=== PATIENT | female | born 1990 | race Hispanic/Latino ===

== ENCOUNTER 2020-05-09 19:51 | Emergency (ER) | payer OTHER ==
[2020-05-09] MEDS ORDERED: Ondansetron ODT 4 MG TAB ONE (20:23)
[2020-05-09 20:41] LABS: Bilirubin Negative (Negative); Blood, Urine Negative (Negative); Clarity Clear (Clear); Glucose, Urine (Dipstick) Normal (Negative); Leukocyte Negative Leu/uL (Negative); Nitrite Negative (Negative); Pregnancy Test - Urine (BHCG) Negative (Negative); Pregu Control Background? CLEAR/WHITE (CLR/WHITE); Pregu Control Bar Appear? YES (CONTROL BAR); Protein, Urine (Dipstick) Negative (Neg-Trace); Specific Gravity 1.024 (1.002-1.036); Urobilinogen Normal mg/dL (Less than 2)
[2020-05-09] MEDS ORDERED: Acetaminophen 500 MG TAB ONE (20:42)
[2020-05-10 12:49] LABS: SARS-CoV-2 MS2 Positive; SARS-CoV-2 N Gene Negative; SARS-CoV-2 S Gene Negative; SARS-CoV-2 orf1ab Negative
== END 2020-05-09 21:10 | disposition home or self-care (01) ==
LOC: ERS 19:51
DX: R51 Headache (principal); R19.7 Diarrhea, unspecified; Z20.828 Contact with and (suspected) exposure to other viral communicable diseases
CPT/HCPCS: 81003; 81025; 87635; 99283; Q0162; U0003